=== PATIENT | female | born 1985 | race Caucasian/White ===

== ENCOUNTER 2017-04-09 01:27 | Emergency (ER) | payer OTHER ==
[~2017-04-09 01:27] MED LIST: HYDROCODON-ACE1 EA16 PO; HYDROCODON-ACE1 EAC7 PO; IBUPROFEN400 M1 PO; IBUPROFEN800 M1 PO; MOBIC7.5 M1 PO; MOTRIN400 MG PO; NORCO 5-325 TA1 EACH PO; NORCO 5/325 TAB1 TAB PO; NORFLEX100 MG/TA1 PO; PERCOCET 5-3251 EACH PO; PRISTIQ50 MG PO; SKELAXIN800 MG PO; TRAMADOL HCL50 M2 PO; VITAMIN C500 M3 PO; ZANTAC150 M1 PO
[2017-04-09] MEDS ORDERED: AMOXICILLIN875 M1 PO (01:49)
[2017-04-09] MEDS ORDERED: NORCO 5-325 TA1 EACH PO (01:49)
[2017-04-09] MEDS ORDERED: SUBOXONE 4 MG-1 EACH SL (03:03)
== END 2017-04-09 02:26 ==
LOC: EDMED 01:27
DX: K03.81 Cracked tooth (principal); K02.9 Dental caries, unspecified
CPT/HCPCS: J1170